=== PATIENT | male | born 1960 | race Caucasian/White ===

== ENCOUNTER → 2021-03-10 | Outpatient (CLI) | payer BC, OTHER ==
[~2021-03-10] MED LIST: IBUPROFEN 600600 M1 PO; NORCO 5-325 TA1 EACH PO
== END ==
LOC: SJCVCIMAG 09:08
PROVIDERS: ATTEND Internal Medicine Cardiovascular Disease
DX: I25.10 Atherosclerotic heart disease of native coronary artery without angina pectoris (principal); E78.00 Pure hypercholesterolemia, unspecified; I10 Essential (primary) hypertension; R93.1 Abnormal findings on diagnostic imaging of heart and coronary circulation